=== PATIENT | female | born 2000 | race Two or more races ===

== ENCOUNTER 2021-05-01 09:42 | Emergency (ER) | payer OTHER ==
[~2021-05-01] VITALS: Ht 154.9 cm; Wt 70.5 kg
[2021-05-01 11:00] VITALS: BP 121/69
== END 2021-05-01 11:12 | disposition home or self-care (01) ==
LOC: EMS 09:47
DX: Z11.1 Encounter for screening for respiratory tuberculosis (principal)
CPT/HCPCS: 71045; 99283